=== PATIENT | female | born 1995 | race Caucasian/White ===

== ENCOUNTER 2023-05-14 11:33 | Emergency (ER) | payer OTHER ==
[~2023-05-14] VITALS: Ht 172.7 cm; Wt 89.8 kg
[2023-05-14] MEDS ORDERED: CEPHALEXIN MONOHYDRATE 500 MG CAPSULE PO ONE ×2 (13:40→14:00)
[2023-05-14] MEDS ORDERED: CEPH500C2 PO (13:44)
[2023-05-14 13:55] VITALS: BP 118/76; TEMP 98.4; O2SAT 98
== END 2023-05-14 13:56 | disposition home or self-care (01) ==
LOC: ER 11:33
DX: R21 Rash and other nonspecific skin eruption (principal); Z60.2 Problems related to living alone